=== PATIENT | male | born 1955 | race Caucasian/White ===

== ENCOUNTER 2019-04-15 08:14 | Outpatient (CLI) | payer OTHER ==
--- NOTE | 2019-04-15 08:33 | RAD ---
Thoracic spine 3 views HISTORY: Back pain. FINDINGS: Very small ribs at the 12 thoracic level. Pedicles are intact. Prominent osteophytosis throughout the vertebral bodies. Less prominent osteophy tosis of the facets. Vertebral body heights are maintained. Moderate rightward convex curvature of the mid thoracic spine. Cervicothoracic junction is intact. No acute fracture or dislocation apparent. IMPRESSION: Prominent osteophytosis and degenerative changes thoracic spine. Moderate rightward conve x curvature. No acute osseous abnormalities are demonstrated..
== END 2019-04-15 08:15 | disposition home or self-care (01) ==
LOC: RAD-FRANK 08:14
PROVIDERS: ATTEND Nurse Practitioner Family
DX: M54.6 Pain in thoracic spine (principal); M47.814 Spondylosis without myelopathy or radiculopathy, thoracic region; M25.78 Osteophyte, vertebrae; M43.9 Deforming dorsopathy, unspecified
CPT/HCPCS: 72070

== ENCOUNTER 2019-09-07 07:32 | Outpatient (CLI) | payer OTHER ==
--- NOTE | 2019-09-07 07:47 | RAD ---
EXAM: Chest 2 views: HISTORY: Chest wall pain COMPARISON: None. FINDINGS: There is a normal-sized cardiomediastinal silhouette. There is no evidence of consolidation, mass, or pleural effusion. Degenerative changes are seen in the spine. IMPRESSION: No evidence of acute cardiopulmonary disease
== END 2019-09-07 07:33 | disposition home or self-care (01) ==
LOC: RAD-FRANK 07:32
PROVIDERS: ATTEND Nurse Practitioner Family
DX: R07.89 Other chest pain (principal)
CPT/HCPCS: 71046

== ENCOUNTER 2020-07-29 18:50 | Emergency (ER) | payer SELFPAY ==
[2020-07-29] MEDS ORDERED: Ketorolac Tromethamine 30 MG/ML VIAL ONE (19:06)
[2020-07-29 19:08] LABS: #Eosinphils 0.1 thou/uL (0.0-0.7); #Lymphocytes 1.3 thou/uL (1.20-3.40); #Monocytes 0.4 thou/uL (0.11-0.59); #Neutrophils 3.4 thou/uL (1.40-6.50); %Basophils 0.7 % (0.0-1.0); %Eosinophils 1.8 % (0.0-10.0); %Lymphocytes 24.8 % (21.0-51.0); %Monocytes 8.3 % (0.0-10.0); %Neutrophils 64.4 % (42.0-75.0); Mean Corpuscular HGB CONC 33.3 g/dL (32.0-36.0); Mean Platelet Volume 8.6 fL (7.4-10.4); Platelet Count 137 thou/uL (130-400); RBC Distribution Width 12.5 % (11.5-14.5); Red Blood Cell (RBC) Count 5.01 mill/uL (4.70-6.10); White Blood Cell (WBC) Count 5.2 thou/uL (4.8-10.8)
[2020-07-29 19:28] LABS: ALT (SGPT) 27 U/L (8-55); AST (SGOT) 22 U/L (5-34); Alkaline Phosphatase 69 U/L (40-110); Anion Gap 15 mmol/L (10-20); BUN (Urea Nitrogen) 35 mg/dL (8.4-25.7); Bilirubin, Total 0.4 mg/dL (0.2-1.2); Calc. Creatinine Clearance 0 mL/min (70-130); Carbon Dioxide 21 mmol/L (23-31); Chloride 111 mmol/L (98-107); Globulin 2.7 g/dL (2.4-3.5); Glucose 203 mg/dL (80-115); Potassium 4.6 mmol/L (3.5-5.1); Protein, Total 6.7 g/dL (5.8-8.1); Sodium 142 mmol/L (136-145)
[2020-07-29 20:15] LABS: Bacteria/HPF None Seen HPF (None Seen); Bilirubin Negative (Negative); Blood, Urine 3+ (Negative); Clarity Clear (Clear); Glucose, Urine (Dipstick) 300 mg/dL (Negative); Ketone, Urine Trace mg/dL (Negative); Leukocyte Negative Leu/uL (Negative); Nitrite Negative (Negative); Protein, Urine (Dipstick) 10 mg/dL (Neg-Trace); RBC/HPF Greater than 50 HPF (0-3); Specific Gravity, Urine 1.017 (1.002-1.036); Squamous Epithelial None Seen HPF (0-3); Urobilinogen Normal mg/dL (Less than 2); WBC/HPF 0-3 HPF (0-3); pH, Urine 6.5 (5.0-9.0)
== END 2020-07-29 21:04 | disposition home or self-care (01) ==
LOC: ERS 18:50
DX: N13.2 Hydronephrosis with renal and ureteral calculous obstruction (principal); I10 Essential (primary) hypertension; E11.9 Type 2 diabetes mellitus without complications; Z79.899 Other long term (current) drug therapy
CPT/HCPCS: 74176; 80053; 81003; 81015; 83690; 85025; 94760; 96374; J1885

== ENCOUNTER 2020-08-01 08:09 | Inpatient (IN) | payer SELFPAY ==
[2020-08-01 09:08] LABS: #Eosinphils 0.1 thou/uL (0.0-0.7); #Lymphocytes 1.3 thou/uL (1.20-3.40); #Monocytes 0.7 thou/uL (0.11-0.59); #Neutrophils 6.8 thou/uL (1.40-6.50); %Basophils 0.4 % (0.0-1.0); %Lymphocytes 14.4 % (21.0-51.0); %Monocytes 8.2 % (0.0-10.0); Hemoglobin 15.5 g/dL (14.0-18.0); Mean Corpuscular HGB CONC 31.7 g/dL (32.0-36.0); Mean Corpuscular Hemoglobin 26.9 pg (27.0-31.0); Mean Corpuscular Volume 84.6 fL (78.0-98.0); Mean Platelet Volume 8.8 fL (7.4-10.4); Platelet Count 135 thou/uL (130-400); RBC Distribution Width 12.5 % (11.5-14.5); Red Blood Cell (RBC) Count 5.77 mill/uL (4.70-6.10); White Blood Cell (WBC) Count 8.9 thou/uL (4.8-10.8)
[2020-08-01] MEDS ORDERED: Morphine 4 MG/ML VIAL ONE (09:12)
[2020-08-01] MEDS ORDERED: Ondansetron PF 4 MG/2 ML Vial ONE ×3 (09:12→17:39)
[2020-08-01] MEDS ORDERED: Ketorolac Tromethamine 30 MG/ML VIAL ONE (09:12)
[2020-08-01 09:33] LABS: ALT (SGPT) 21 U/L (8-55); AST (SGOT) 17 U/L (5-34); Albumin 4.5 g/dL (3.4-4.8); Alkaline Phosphatase 70 U/L (40-110); Anion Gap 13 mmol/L (10-20); BUN (Urea Nitrogen) 13 mg/dL (8.4-25.7); Bilirubin, Total 0.9 mg/dL (0.2-1.2); Calc. Creatinine Clearance 0 mL/min (70-130); Calcium 9.6 mg/dL (7.8-10.44); Carbon Dioxide 25 mmol/L (23-31); Chloride 106 mmol/L (98-107); Globulin 3.3 g/dL (2.4-3.5); Glucose 203 mg/dL (80-115); Potassium 4.4 mmol/L (3.5-5.1); Protein, Total 7.8 g/dL (5.8-8.1); Sodium 140 mmol/L (136-145)
[2020-08-01 11:33] LABS: Bacteria/HPF None Seen HPF (None Seen); Bilirubin Negative (Negative); Blood, Urine 3+ (Negative); Clarity Clear (Clear); Glucose, Urine (Dipstick) 200 mg/dL (Negative); Ketone, Urine 20 mg/dL (Negative); Leukocyte 25 Leu/uL (Negative); Nitrite Negative (Negative); Protein, Urine (Dipstick) 100 mg/dL (Neg-Trace); RBC/HPF 21-50 HPF (0-3); Specific Gravity, Urine 1.016 (1.002-1.036); Squamous Epithelial 0-3 HPF (0-3); Urobilinogen Normal mg/dL (Less than 2); pH, Urine 5.5 (5.0-9.0)
[2020-08-01 12:55] LABS: SARS-CoV-2 NAA Rapid Test Not Detected (NotDetected)
[2020-08-01] MEDS ORDERED: Fentanyl 100 MCG/2 ML VIAL ONE ×3 (15:05→16:39)
[2020-08-01] MEDS ORDERED: Iothalamate Meglumine 60% 50 ML VIAL FS ONE (15:09)
[2020-08-01] MEDS ORDERED: Levofloxacin 500 mg/D5W 100 ml Premix Bag ONE (15:17)
[2020-08-01] MEDS ORDERED: PROPOFOL 200 MG/20 ML VIAL ONE (15:29)
[2020-08-01] MEDS ORDERED: PHENYLEPHRINE-NS 100 MCG/ML 10 ML SYRINGE ONE (15:29)
[2020-08-01] MEDS ORDERED: ePHEDrine Sulfate 50 MG/10 ML VIAL ONE (15:29)
[2020-08-01] MEDS ORDERED: hydrALAZINE 20 MG/ML VIAL ONE (16:36)
[2020-08-01] MEDS ORDERED: Morphine 2 MG/ML VIAL ONE (17:39)
[2020-08-01] MEDS ORDERED: Sodium Chloride 0.9% 10 ML ONE (17:48)
[2020-08-01] MEDS ORDERED: Promethazine HCl 25 MG/ML VIAL ONE (17:48)
[2020-08-01] MEDS ORDERED: HYDROcodone/Acetaminophen 5/325 mg Tablet ONE ×2 (18:24→19:15)
== END 2020-08-01 19:30 | disposition home or self-care (01) | DRG 661 ==
LOC: ERS 08:09 → SURG A 14:17
PROVIDERS: ADMIT Urology; ATTEND Urology
PROC: 0T768DZ Dilation of Right Ureter with Intraluminal Device, Via Natural or Artificial Opening Endoscopic (ICD-10-PCS; principal; 2020-08-01)
PROC: BT1D1ZZ Fluoroscopy of Right Kidney, Ureter and Bladder using Low Osmolar Contrast (ICD-10-PCS; 2020-08-01)
DX: N13.2 Hydronephrosis with renal and ureteral calculous obstruction (principal); I10 Essential (primary) hypertension; I25.10 Atherosclerotic heart disease of native coronary artery without angina pectoris; E11.9 Type 2 diabetes mellitus without complications; E05.90 Thyrotoxicosis, unspecified without thyrotoxic crisis or storm; N40.0 Benign prostatic hyperplasia without lower urinary tract symptoms; M19.90 Unspecified osteoarthritis, unspecified site; Z20.822 Contact with and (suspected) exposure to COVID-19; Z88.0 Allergy status to penicillin; Z98.890 Other specified postprocedural states; Z79.899 Other long term (current) drug therapy; Z87.442 Personal history of urinary calculi; Z95.5 Presence of coronary angioplasty implant and graft
CPT/HCPCS: 74176; 74420; 80053; 81003; 81015; 85025; 87086; 96374; 96375; C2617; J0360; J1885; J1956; J2270; J2405; J2550; J2704; J3010; Q9961; U0002; U0005

== ENCOUNTER 2020-08-06 11:59 | Outpatient (CLI) | payer SELFPAY ==
[2020-08-06 14:07] LABS: Hemoglobin 13.2 g/dL (13.5-17.5); Mean Corpuscular HGB CONC 32.2 g/dL (32.0-36.0); Mean Corpuscular Hemoglobin 26.3 pg (27.0-33.0); Mean Corpuscular Volume 81.8 fl (81.2-95.1); Mean Platelet Volume 11.2 fl (7.4-10.4); Platelet Count 159 10x3/uL (150-450); RBC Distribution Width 12.8 % (11.5-14.5); Red Blood Cell (RBC) Count 5.01 10x6/uL (4.32-5.72); White Blood Cell (WBC) Count 4.9 10x3/uL (3.5-10.5)
[2020-08-06 14:09] LABS: PTT 23.8 sec (22.0-33.0); Prothrombin Time 10.9 sec (9.5-12.1)
[2020-08-06 15:55] LABS: Bilirubin Neg (Negative); Blood, Urine 250 (Negative); Clarity Clear (Clear); Glucose, Urine (Dipstick) >=1000 mg/dL (Negative); Ketone, Urine Negative (Negative); Leukocyte 25 (Negative); Nitrite Negative (Negative); Protein, Urine (Dipstick) 100 mg/dl (Neg-Trace); Urobilinogen Normal mg/dL (Less than 2)
[2020-08-06 16:01] LABS: Anion Gap 13 mmol/L (10-20); BUN (Urea Nitrogen) 20 mg/dL (8.4-25.7); Calc. Creatinine Clearance 0 mL/min (70-130); Calcium 9.5 mg/dL (7.8-10.44); Carbon Dioxide 24 mmol/L (23-31); Chloride 108 mmol/L (98-107); Glucose 202 mg/dL (80-115); Potassium 4.9 mmol/L (3.5-5.1); Sodium 140 mmol/L (136-145)
[2020-08-06 16:59] LABS: RBC/HPF 21-50 HPF (0-3); Squamous Epithelial 0-3 HPF (0-3); WBC/HPF 0-3 HPF (0-3)
== END 2020-08-06 12:00 | disposition home or self-care (01) ==
LOC: LABBT 11:59
PROVIDERS: ATTEND Urology
DX: Z01.818 Encounter for other preprocedural examination (principal)
CPT/HCPCS: 80048; 81001; 85027; 85610; 85730; 87086; 93005; 93010

== ENCOUNTER 2020-08-09 06:16 | Day surgery (SDC) | payer OTHER ==
[2020-08-08 09:35] VITALS: BMI 32.9
[2020-08-09] MEDS ORDERED: Levofloxacin 500 mg/D5W 100 ml Premix Bag ONE (08:17)
[2020-08-09] MEDS ORDERED: B & O ONE (09:12)
[2020-08-09] MEDS ORDERED: Iothalamate Meglumine 60% 50 ML VIAL FS ONE (09:12)
[2020-08-09] MEDS ORDERED: Fentanyl 100 MCG/2 ML VIAL ONE (09:14)
[2020-08-09] MEDS ORDERED: Ondansetron PF 4 MG/2 ML Vial ONE (09:23)
[2020-08-09] MEDS ORDERED: PROPOFOL 200 MG/20 ML VIAL ONE (09:23)
[2020-08-09] MEDS ORDERED: ePHEDrine Sulfate 50 MG/10 ML VIAL ONE (09:23)
[2020-08-09] MEDS ORDERED: Dexamethasone 20 MG/5 ML VIAL ONE (09:23)
[2020-08-09] MEDS ORDERED: hydrALAZINE 20 MG/ML VIAL ONE (10:24)
[2020-08-09] MEDS ORDERED: HYDROcodone/Acetaminophen 5/325 mg Tablet ONE ×2 (11:37→12:16)
== END 2020-08-09 12:45 | disposition home or self-care (01) ==
LOC: SDC 06:16
PROVIDERS: ATTEND Urology
PROC: 0TC68ZZ Extirpation of Matter from Right Ureter, Via Natural or Artificial Opening Endoscopic (ICD-10-PCS; principal; 2020-08-09)
PROC: 0T768DZ Dilation of Right Ureter with Intraluminal Device, Via Natural or Artificial Opening Endoscopic (ICD-10-PCS; principal; 2020-08-09)
DX: N20.1 Calculus of ureter (principal); I10 Essential (primary) hypertension; E11.9 Type 2 diabetes mellitus without complications; E05.90 Thyrotoxicosis, unspecified without thyrotoxic crisis or storm; I25.10 Atherosclerotic heart disease of native coronary artery without angina pectoris; E66.9 Obesity, unspecified; Z68.33 Body mass index [BMI] 33.0-33.9, adult; Z79.899 Other long term (current) drug therapy; Z95.5 Presence of coronary angioplasty implant and graft; Z88.0 Allergy status to penicillin; Z79.84 Long term (current) use of oral hypoglycemic drugs
CPT/HCPCS: 76000; 82365; 88300; C2617; J0360; J1100; J1956; J2405; J2704; J3010; Q9961

== ENCOUNTER 2021-12-02 10:38 | Outpatient (CLI) | payer MEDICARE | END 2021-12-02 10:39 | disposition home or self-care (01) | LOC: RAD-FRANK 10:38 | PROVIDERS: ATTEND Nurse Practitioner Family | DX: J20.8 Acute bronchitis due to other specified organisms (principal) | CPT/HCPCS: 71046 ==